=== PATIENT | female | born 1975 | race Hispanic/Latino ===

== ENCOUNTER 2017-10-01 14:12 | Outpatient (CLI) | payer MEDICAID ==
--- NOTE | 2017-10-01 15:39 | XRay Report ---
XRAY RIGHT SHOULDER THREE VIEWS: 10/01/17 14:12:00 CLINICAL: Right shoulder pain. FINDINGS: Normal glenohumeral alignment. Mild glenohumeral joint arthritis with irregularity of the glenoid and a small inferior glenoid osteophyte. Normal acromioclavicular joint. No fracture or dislocation. No bone lesion. Normal soft tissues. IMPRESSION: Mild glenohumeral joint arthritis.
== END 2017-10-01 14:13 | disposition home or self-care (01) ==
LOC: SPVIMAG 14:12
PROVIDERS: ATTEND Orthopaedic Surgery Sports Medicine
DX: M19.011 Primary osteoarthritis, right shoulder (principal)

== ENCOUNTER 2021-08-01 19:45 | Emergency (ER) | payer MEDICAID ==
[2021-08-01] MEDS ORDERED: dexAMETHasone 20 MG/5 ML VIAL IM ONE (23:21)
[2021-08-01] MEDS ORDERED: KETOROLAC 30 MG/1 ML INJ IM ONE (23:21)
[2021-08-02 01:34] LABS: Bilirubin,Urine NEG (Negative); Blood,Urine NEG (Negative); Color,Urine Straw (Yellow); Mucus,Urine FEW /HPF; Protein,Urine <15 mg/dL mg/dL (Negative); Urobilinogen,Urine < 2.0 mg/dL (<2.0)
--- NOTE | 2021-08-02 02:02 | Emergency Department Report ---
ED Back Pain/Injury HPI - General Chief Complaint: Back Pain/Injury Stated Complaint: BACK PAIN Source: patient Limitations: No Limitations - History of Present Illness Initial Comments: Patient is a 46-year-old female with a history of anxiety and depression, hypertension who presents to the ED with complaint of persistent nontraumatic bilateral hand and wrist pain for over 6 months. Patient also complains of low back pain for 2 weeks. Patient states that her job entails heavy lifting, bending and pulling and that the pain initially gets worse when she lays down to sleep. Patient states that the pain is especially worse at night when she is asleep or when she wakes up in the morning but improves with physical activity like heavy lifting. Patient denies fall, traumatic injury, chest pain, shortness of breath, fever, chills, nausea and vomiting, numbness and tingling or weakness of upper and lower extremities bilaterally. MD Complaint: back pain (Low back pain), other (Bilateral wrist and hand pain) -: Gradual, month(s) (6) Similar Symptoms Previously: Yes (Chronic pain) Place: home Radiation: none Severity: severe Severity scale (0 -10): 7 Quality: sharp, aching Consistency: constant Improves With: movement, walking Worsens With: supine, other (rest) Context: other (Chronic osteoarthritis and back pain) Associated Symptoms: denies other symptoms. denies: confusion, chest pain, numbness, difficulty walking, diaphoresis, incontinence, fever/chills, constipation, headaches, abdominal pain, loss of appetite, nausea/vomiting, rash, seizure, shortness of breath, syncope Treatments Prior to Arrival: acetaminophen - Related Data Home Medications Medication Instructions Recorded Confirmed Last Taken Buprenorphine/Naloxone [Suboxone 2 1 film SL QDAY 09/12/13 05/22/14 Unknown mg-0.5 mg SL Film] PARoxetine [Paxil] 10 mg PO DAILY 09/12/13 05/22/14 Unknown Topiramate [Topamax] 50 mg PO BID 09/12/13 05/22/14 Unknown diazePAM TAB [Valium] 2 mg PO TID PRN 09/12/13 05/22/14 Unknown Previous Rx's Medication Instructions Recorded Last Taken Type Baclofen 20 mg PO Q12H PRN #30 tab 08/02/21 Unknown Rx Ibuprofen [Motrin] 800 mg PO Q8HR PRN #30 tablet 08/02/21 Unknown Rx Prednisone [predniSONE 10 mg 10 mg PO .TAPER #21 08/02/21 Unknown Rx (6-Day Pack, 21 Tabs)] Allergies Allergy/AdvReac Type Severity Reaction Status Date / Time No Known Allergies Allergy Verified 08/01/21 22:07 ED Review of Systems ROS: Stated complaint: BACK PAIN Other details as noted in HPI Constitutional: denies: chills, fever Eyes: denies: eye pain, eye discharge, vision change ENT: denies: ear pain, throat pain Respiratory: denies: cough, shortness of breath, wheezing Cardiovascular: denies: chest pain, palpitations Endocrine: no symptoms reported Gastrointestinal: denies: abdominal pain, nausea, vomiting, diarrhea Genitourinary: denies: urgency, dysuria, discharge Musculoskeletal: back pain (Low back pain), arthralgia (Bilateral hand and wrist pain), myalgia (Diffuse). denies: joint swelling Skin: denies: rash, lesions Neurological: denies: headache, weakness, paresthesias Psychiatric: denies: anxiety, depression Hematological/Lymphatic: denies: easy bleeding, easy bruising ED Past Medical Hx - Past Medical History Hx Hypertension: Yes Hx Psychiatric Treatment: Yes Additional medical history: Narcotic dependence and abuse. high cholesterol - Surgical History Past Surgical History?: Yes Additional Surgical History: - Social History Smoking Status: Current Every Day Smoker Substance Use Type: Marijuana - Medications Home Medications: Home Medications Medication Instructions Recorded Confirmed Last Taken Type Buprenorphine/Naloxone [Suboxone 2 1 film SL QDAY 09/12/13 05/22/14 Unknown History mg-0.5 mg SL Film] PARoxetine [Paxil] 10 mg PO DAILY 09/12/13 05/22/14 Unknown History Topiramate [Topamax] 50 mg PO BID 09/12/13 05/22/14 Unknown History diazePAM TAB [Valium] 2 mg PO TID PRN 09/12/13 05/22/14 Unknown History Baclofen 20 mg PO Q12H PRN #30 tab 08/02/21 Unknown Rx Ibuprofen [Motrin] 800 mg PO Q8HR PRN #30 tablet 08/02/21 Unknown Rx Prednisone [predniSONE 10 mg 10 mg PO .TAPER #21 08/02/21 Unknown Rx (6-Day Pack, 21 Tabs)] ED Physical Exam - General Limitations: No Limitations General appearance: alert, in no apparent distress - Head Head exam: Present: atraumatic, normocephalic, normal inspection - Eye Eye exam: Present: normal appearance, PERRL, EOMI Pupils: Present: normal accommodation - ENT ENT exam: Present: normal exam, normal orophraynx, mucous membranes moist, TM's normal bilaterally, normal external ear exam - Neck Neck exam: Present: normal inspection, full ROM. Absent: tenderness - Respiratory Respiratory exam: Present: normal lung sounds bilaterally. Absent: respiratory distress, wheezes, rales, stridor, chest wall tenderness, accessory muscle use, decreased breath sounds, prolonged expiratory - Cardiovascular Cardiovascular Exam: Present: regular rate, normal rhythm, normal heart sounds. Absent: systolic murmur, diastolic murmur, rubs, gallop - GI/Abdominal GI/Abdominal exam: Present: soft, normal bowel sounds. Absent: tenderness, guarding, rebound, hyperactive bowel sounds, hypoactive bowel sounds, organomegaly - Extremities Exam Extremities exam: Present: normal inspection, full ROM, tenderness (Palpable bilateral hand and wrist tenderness), normal capillary refill. Absent: pedal edema, joint swelling, calf tenderness - Back Exam Back exam: Present: normal inspection, full ROM, tenderness (Palpable lumbosacral paraspinal musculoskeletal tenderness), muscle spasm, paraspinal tenderness. Absent: CVA tenderness (R), CVA tenderness (L), vertebral tenderness, rash noted - Neurological Exam Neurological exam: Present: alert, oriented X3, CN II-XII intact, normal gait, reflexes normal - Psychiatric Psychiatric exam: Present: normal affect, normal mood - Skin Skin exam: Present: warm, dry, intact, normal color. Absent: rash ED Course Vital Signs 08/01/21 08/01/21 22:10 23:57 Temperature 97.7 F Pulse Rate 78 Respiratory 17 14 Rate Blood Pressure 155/78 O2 Sat by Pulse 98 Oximetry ED Medical Decision Making - Medical Decision Making This is a 46-year-old female with a history of anxiety and depression, hypertension who presents to the ED with complaint of persistent nontraumatic bilateral hand and wrist pain for over 6 months. Patient also complains of low back pain for 2 weeks. Patient states that her job entails heavy lifting, bending and pulling and that the pain initially gets worse when she lays down to sleep. Patient states that the pain is especially worse at night when she is asleep or when she wakes up in the morning but improves with physical activity like heavy lifting. In the ED, patient is alert and oriented x3 and is not in distress. Patient was treated for pain in the ED and urinalysis is unremarkable with no sign of hematuria or urinary tract infection. Patient symptoms are likely due to musculoskeletal muscle strain, muscle spasm or chronic osteoarthritis of the joints of the upper limbs. On reevaluation, patient's pain is well controlled medication. Patient fell asleep on the couch but was arousable. Patient was advised to return to the ED immediately if symptoms get worse, otherwise follow-up with her primary care physician in 7 to 10 days for reevaluation. - Differential Diagnosis Muscle strain; muscle spasm; osteoarthritis; tendinitis Critical care attestation.: If time is entered above; I have spent that time in minutes in the direct care of this critically ill patient, excluding procedure time. ED Disposition Clinical Impression: Spasm of muscle of lower back, Chronic osteoarthritis Disposition: HOME / SELF CARE / HOMELESS Is pt being admited?: No Does the pt Need Aspirin: No Condition: Stable Instructions: Muscle Cramps and Spasms, [id number], Muscle Cramps and Spasms, Arthritis, [id number] Additional Instructions: Urinalysis is unremarkable. Therefore take medications with food, plenty of fluids and follow-up with your primary care physician in 5 to 7 days for ree valuation. Return to the ED immediately if symptoms get worse. Prescriptions: Baclofen 20 mg PO Q12H PRN #30 tab PRN Reason: Muscle Spasm Ibuprofen [Motrin] 800 mg PO Q8HR PRN #30 tablet PRN Reason: Pain , Severe (7-10) Prednisone [predniSONE 10 mg (6-Day Pack, 21 Tabs)] 10 mg PO .TAPER #21 Referrals: [facility] [Provider Group] - 7-10 days Forms: Work/School Release Form(ED) Time of Disposition: 02:05 Print Language: SYRIAC
[2021-08-02 03:13] VITALS: BP 143/90
== END 2021-08-02 03:11 | disposition home or self-care (01) ==
LOC: ED 19:45
DX: M62.830 Muscle spasm of back (principal); M19.90 Unspecified osteoarthritis, unspecified site; I10 Essential (primary) hypertension; F17.200 Nicotine dependence, unspecified, uncomplicated; F12.90 Cannabis use, unspecified, uncomplicated
CPT/HCPCS: 81001; 96372; 99283; J1100; J1885